=== PATIENT | female | born 1995 | race African-American/Black ===

== ENCOUNTER 2020-07-06 20:37 | Emergency (ER) | payer SELFPAY ==
[~2020-07-06] VITALS: Ht 157.5 cm; Wt 55.3 kg
[2020-07-06 20:52] VITALS: BP 118/80
[2020-07-06] MEDS ORDERED: LIDOCAINE HCL/MPF 1% 30 ML VIAL IJ ONE (21:00)
[2020-07-06] MEDS ORDERED: TRAMADOL HCL 50 MG TABLET ONE (21:06)
[2020-07-06] MEDS ORDERED: TRAMADOL HCL 50 MG TABLET PO ONE (21:30)
[2020-07-06] MEDS ORDERED: TDAP [DIPH/PERTUSSIS/TET] 0.5 ML VIAL IM ONE ×2 (21:30→21:35)
== END 2020-07-06 21:47 | disposition home or self-care (01) ==
LOC: ER 20:49
DX: N75.1 Abscess of Bartholin's gland (principal)
CPT/HCPCS: 56420; 90471; 90715; 99284; J3490